=== PATIENT | male | born 1960 | race Caucasian/White ===

== ENCOUNTER → 2019-01-24 | Emergency (ER) | payer OTHER ==
[~2019-01-24] VITALS: Ht 177.8 cm; Wt 81.8 kg
[~2019-01-24] MED LIST: GABA-529 PO
[2019-01-24 15:42] VITALS: BP 134/85
== END | disposition home or self-care (01) ==
LOC: EMS 15:22
DX: M79.672 Pain in left foot (principal); M79.671 Pain in right foot; M79.2 Neuralgia and neuritis, unspecified; F17.210 Nicotine dependence, cigarettes, uncomplicated; Z88.6 Allergy status to analgesic agent; Z88.5 Allergy status to narcotic agent

== ENCOUNTER 2019-05-29 21:25 | Emergency (ER) | payer OTHER ==
[~2019-05-29] VITALS: Ht 190.5 cm; Wt 77.3 kg
[2019-05-29 21:39] VITALS: BP 105/65
== END 2019-05-29 23:00 | disposition left against medical advice (07) ==
LOC: EMS 21:43
DX: S60.416A Abrasion of right little finger, initial encounter (principal); I25.10 Atherosclerotic heart disease of native coronary artery without angina pectoris; I48.91 Unspecified atrial fibrillation; F32.9 Major depressive disorder, single episode, unspecified; F17.210 Nicotine dependence, cigarettes, uncomplicated; Z13.89 Encounter for screening for other disorder; W18.09XA Striking against other object with subsequent fall, initial encounter; Y93.89 Activity, other specified; Y92.89 Other specified places as the place of occurrence of the external cause; Y99.8 Other external cause status